=== PATIENT | male | born 1965 | race Hispanic/Latino ===

== ENCOUNTER 2017-07-15 08:40 | Emergency (ER) | payer MEDICARE ==
[2017-07-15 09:42] LABS: BASOPHILS % (AUTO) 0.9 % (0.0-5.0); EOSINOPHILS % (AUTO) 0.8 % (0.0-8.0); HEMATOCRIT 43.1 % (42-54); LYMPHOCYTES % (AUTO) 12.7 % (21.0-51.0); MEAN CORPUSCULAR HEMOGLOBIN 29.3 pg (27.0-33.0); MEAN CORPUSCULAR HGB CONC 35.5 g/dL (32.0-36.0); MEAN CORPUSCULAR VOLUME 82.7 fL (79-99); MONOCYTES % (AUTO) 7.2 % (3.0-13.0); NEUTROPHILS % (AUTO) 78.4 % (40.0-77.0); PLATELET COUNT (AUTO) 215 K/uL (130-400); RED BLOOD CELL COUNT(AUTO) 5.21 MIL/uL (4.50-6.20); RED CELL DISTRIBUTION WIDTH 13.2 % (11.0-15.5); WHITE BLOOD COUNT (AUTO) 10.7 K/uL (4.8-10.8)
[2017-07-15 09:59] LABS: CHLORIDE 100 mmol/L (101-111); POTASSIUM 4.2 mmol/L (3.5-5.1); SODIUM SERUM 136 mmol/L (136-145)
[2017-07-15] MEDS ORDERED: LIDOCAINE 1%-EPI 1:100,000 20 ML VIAL IJ ONE (10:05)
[2017-07-15] MEDS ORDERED: CLINDAMYCIN 600 MG/D5% WATER 50 ML IV ONE (10:05)
[2017-07-15 10:06] LABS: ALANINE AMINOTRANSFERASE 25 U/L (12-78); ALBUMIN 3.3 g/dL (3.5-5.0); ASPARTATE AMINOTRANSFERASE 54 U/L (10-37); BILIRUBIN,TOTAL 1.3 mg/dL (0.2-1.0); CARBON DIOXIDE 24 mmol/L (21-32); CREATINE KINASE MB < 0.5 ng/mL (0.5-3.6); CREATINE KINASE, TOTAL 142 U/L (21-232); CREATININE 0.7 mg/dL (0.5-1.5); GLOMERULAR FILTR. RATE CALC 127 mL/min (>60); GLUCOSE,RANDOM 344 mg/dL (70-105); MYOGLOBIN 17 ng/mL (10-92); TOTAL PROTEIN, SERUM 8.1 g/dL (6.0-8.3); TROPONIN I < 0.04 ng/mL (0.00-0.06); UREA NITROGEN, BLOOD 9 mg/dL (7-18)
[2017-07-15 10:27] LABS: INR 0.94 (0.85-1.15); PARTIAL THROMBOPLASTIN TIME 25.6 SEC (26.3-35.5); PROTHROMBIN TIME 9.9 SEC (9.6-11.6)
[2017-07-15 10:28] LABS: RAPID GROUP A STREP NEGATIVE (NEGATIVE)
[2017-07-15] MEDS ORDERED: KETOROLAC TROMETHAMINE 15MG/ML ONE (10:43)
== END 2017-07-15 12:05 | disposition home or self-care (01) ==
LOC: EDH 08:40
DX: L02.415 Cutaneous abscess of right lower limb (principal); L03.115 Cellulitis of right lower limb; J02.9 Acute pharyngitis, unspecified; R79.1 Abnormal coagulation profile; E11.9 Type 2 diabetes mellitus without complications; Z98.890 Other specified postprocedural states
CPT/HCPCS: 10060; 36415; 71045; 80053; 82550; 82553; 83605; 83874; 84484; 85025; 85610; 85730; 87040 ×2; 87804 ×2; 87880; 93005; 96365; 96375; 99285; J1885; J3490 ×2

== ENCOUNTER 2018-02-26 18:25 | Emergency (ER) | payer MEDICARE ==
[2018-02-26] MEDS ORDERED: LIDOCAINE HCL 2% VISCOUS 15 ML UDCUP ONE (19:09)
== END 2018-02-26 20:06 | disposition home or self-care (01) ==
LOC: EDH 18:25
DX: S02.5XXA Fracture of tooth (traumatic), initial encounter for closed fracture (principal); K02.9 Dental caries, unspecified; Z98.890 Other specified postprocedural states; X58.XXXA Exposure to other specified factors, initial encounter; Y93.89 Activity, other specified; Y92.89 Other specified places as the place of occurrence of the external cause; Y99.8 Other external cause status

== ENCOUNTER 2018-06-12 18:17 | Emergency (ER) | payer MEDICARE ==
[2018-06-12] MEDS ORDERED: IPRATROPIUM/ALBUTEROL SULFATE 3 ML SOLUTION IH ONE (19:23)
[2018-06-12 19:29] LABS: RAPID GROUP A STREP NEGATIVE (NEGATIVE)
== END 2018-06-12 20:51 | disposition home or self-care (01) ==
LOC: EDH 18:17
DX: J20.9 Acute bronchitis, unspecified (principal)
CPT/HCPCS: 71046; 87804; 87880; 94640

== ENCOUNTER 2024-10-20 16:09 | Emergency (ER) | payer MEDICARE ==
[~2024-10-20] VITALS: Ht 175.3 cm; Wt 90.7 kg
[~2024-10-20 16:09] MED LIST: GABA100C PO; GLIM2TAB30 PO; KETO10TA2 PO; LISI10TA24 PO; METF-445 PO
--- NOTE | 2024-10-20 16:33 | ERN ---
ED Note History of Present Illness Stated Complaint: SHAKING UNCONTROLLABLY Chief Complaint: Other Problems Time Seen by MD: 16:10 Dictation: Patient is a 59-year-old diabetic male coming in today with chills low-grade fever onset yesterday. He states he has been shaking uncontrollably. States he has a mild sore throat. Also states that he has to amputated toes to the right foot and she thinks there may be an early ulcer/wound there. Patient states he has had clear rhinitis and sneezing since yesterday. No nausea no vomiting no diarrhea no loss of taste or smell blood sugar this morning 106. Allergies: Coded Allergies: No Known Allergies (Unverified Allergy, Unknown, 06/14/22) Home Meds Active Scripts Ketorolac Tromethamine (Ketorolac Tromethamine) 10 Mg Tablet, 10 MG PO QIDP PRN for PAIN for 5 Days, #20 TAB 0 Refills Prov:ANGELINA BLAND Jr., MD 06/18/22 Lisinopril (Lisinopril) 10 Mg Tablet, 10 MG PO DAILY for HYPERTENSION for 30 Days, #30 TAB 3 Refills Prov:ANGELINA BLAND Jr., MD 06/18/22 Glimepiride (Glimepiride) 2 Mg Tablet, 2 MG PO DAILY for DIABETES MELLITUS for 30 Days, #60 TAB 3 Refills Prov:ANGELINA BLAND Jr., MD 06/18/22 Metformin HCl (Metformin HCl) 850 Mg Tablet, 850 MG PO BID for 30 Days, #60 TAB 3 Refills Prov:ANGELINA BLAND Jr., MD 06/18/22 Gabapentin (Neurontin) 100 Mg Capsule, 200 MG PO TID for 30 Days, #90 CAP 0 Refills Take 1 tablet orally 3 times a day Prov:ANGELINA BLAND Jr., MD 06/18/22 Past Medical History Past Medical History: Diabetes-Type II, Hypertension Surgical History: Other Surgical History Other: right foot 4th and 5th toe amputation RN Note Reviewed/Agreed w/PFSH: Yes Review of System Dictation CONSTITUTIONAL: Negative except for HPI chills HEAD/FACE: Negative except for HPI EENT: Negative except for HPI sneezing with clear rhinitis and sore throat RESPIRATORY: Negative except for HPI GASTROINTESTINAL/ABDOMINAL: Negative except for HPI GENITOURINARY: Negative except for HPI MUSCULOSKELETAL: Negative except for HPI INTEGUMENTARY: Negative except for HPI NEUROLOGICAL/PSYCH: Negative except for HPI HEMATOLOGIC/LYMPHATIC: Negative except for HPI All Systems Negative, Except as noted above. 13 point review of systems assessed and all negative except for above. Initial Vital Sign VS Vital Signs Date Time Temp Pulse Resp B/P (MAP) Pulse Ox O2 Delivery O2 Flow Rate FiO2 10/20/24 16:11 99.5 89 18 149/78 97 Room Air 0 10/20/24 16:15 21 Physical Exam Dictation Vital Signs reviewed General Appearance: Alert, oriented x 3, mild acute distress, well developed, nourished. Head and Face: non-traumatic. Eyes: PERRL, pink conjunctivas, eyelid no trauma, anterior chamber with arcus senilis. Ears: Pinnas intact and no signs of trauma or erythema ear canals clear and no discharge TM no erythema Nose: Clear discharge, no bleeding. Oropharynx: Mouth normal, tongue pink, pharynx clear,n mild pharyngeal erythema, tonsils no exudates, no abscesses noted, mucous membrane moist uvula midline, voice is clear Neck: Supple, non-tender, no thyromegaly, no masses, no JVD, no bruits Breast:Deferred Chest:No tenderness, no crepitus, no paradoxical movement, no retractions Lungs:Clear, well-ventilated, symmetric, no rales, no wheezing, no rhonchi, no stridor, good breath sounds bilaterally Heart: Regular rate, regular rhythm, no murmur, no gallops Vascular: no peripheral edema, Abdomen: Soft, positive bowel sounds, nondistended, no guarding, nontender, no rebound, no masses no hepatomegaly, no splenomegaly, no Simmons's sign, no hernias. Rectal: Deferred Genital: Deferred Neurological: Normal speech, motor function intact, sensory function intact Musculoskeletal: Neck nontender, full range of motion, back nontender, full range of motion, Extremities: nontender, full range of motion Skin: Color pink, dry, no turgor, no rash, no lacerations, no abrasions, no contusions. Lymphatic: Deferred Results (Laboratory/Radiology) Laboratory/Radiology Laboratory Tests Test 10/20/24 16:45 10/20/24 17:48 White Blood Count 7.2 K/uL (4.8-10.8) Red Blood Count 4.43 MIL/uL (4.50-6.20) L Hemoglobin 13.0 g/dL (14.0-18.0) L Hematocrit 38.2 % (42-54) L Mean Corpuscular Volume 86.2 fL (79-99) Mean Corpuscular Hemoglobin 29.3 pg (27.0-33.0) Mean Corpuscular Hemoglobin Concent 34.0 g/dL (32.0-36.0) Red Cell Distribution Width 13.3 % (11.0-15.5) Platelet Count 169 K/uL (130-400) Mean Platelet Volume 12.3 fL (7.5-10.5) H Immature Granulocyte % (Auto) 0.3 % (0-1) Neutrophils (%) (Auto) 93.6 % (40.0-77.0) H Lymphocytes (%) (Auto) 4.7 % (21.0-51.0) L Monocytes (%) (Auto) 0.7 % (3.0-13.0) L Eosinophils (%) (Auto) 0.4 % (0.0-8.0) Basophils (%) (Auto) 0.3 % (0.0-5.0) Neutrophils # (Auto) 6.7 K/uL (1.8-7.7) Lymphocytes # (Auto) 0.3 K/uL (1.0-4.8) L Monocytes # (Auto) 0.1 K/uL (0.1-1.0) Eosinophils # (Auto) 0.03 K/uL (0.00-0.70) Basophils # (Auto) 0.02 K/uL (0.00-0.20) Absolute Immature Granulocyte (auto 0.02 K/uL (0-1) Nucleated Red Blood Cells 0.0 % (0.0-0.19) White Cell Morphology Comment See comments Sodium Level 139 mmol/L (136-145) Potassium Level 4.4 mmol/L (3.5-5.1) Chloride Level 104 mmol/L (101-111) Carbon Dioxide Level 30 mmol/L (21-32) Blood Urea Nitrogen 16 mg/dL (7-18) Creatinine 0.9 mg/dL (0.5-1.3) Glomerular Filtration Rate Calc 100 mL/min (>90) Random Glucose 151 mg/dL (70-105) H Lactic Acid Level 1.5 mmol/L (0.8-2.5) Total Calcium 9.2 mg/dL (8.5-10.1) Influenza Type A Antigen Negative For Type A Influenza Type B Antigen Negative For Type B SARS-CoV-2 Antigen (Rapid) PRESUMPTIVE NEGATIVE Group A Streptococcus Rapid negative (NEGATIVE) Urine Color LIGHT-YELLOW (YELLOW) Urine Appearance CLEAR (CLEAR) Urine pH 7.0 (5.0-8.0) Urine Specific [place] 1.018 (1.001-1.031) Urine Protein 20 mg/dL (NEGATIVE) H Urine Glucose (UA) NEGATIVE mg/dL (NEGATIVE) Urine Ketones NEGATIVE mg/dL (NEGATIVE) Urine Occult Blood NEGATIVE (NEGATIVE) Urine Nitrate NEGATIVE (NEGATIVE) Urine Bilirubin NEGATIVE mg/dL (NEGATIVE) Urine Urobilinogen 0.2 mg/dL (0.2-1.0) Urine Leukocyte Esterase NEGATIVE [place]/uL Urine RBC 0-1 /HPF (0-1) Urine WBC 0-1 /HPF (0-1) Urine Squamous Epithelial Cells RARE /HPF (0-2) Urine Bacteria None /HPF (None Seen) EXAM: CR Chest, 1 View. CLINICAL HISTORY: SOB/cough COMPARISON: None provided. FINDINGS: LUNGS: There is no mass, infiltrate, or acute pulmonary abnormality. PLEURAL SPACES: No evidence of pleural effusion or pneumothorax. MEDIASTINUM: Cardiac size and mediastinal contours within normal limits. BONES: No aggressive appearing osseous lesion seen. IMPRESSION: No acute cardiopulmonary pathology is evident. /[facility] right foot, 3 View. CLINICAL HISTORY: Erythema tenderness swelling to lateral foot history of diabetes COMPARISON: None provided. FINDINGS: BONES: No acute fracture. No evidence of osteomyelitis. JOINTS: The joint spaces appear within normal limits. No dislocation. SOFT TISSUES: The soft tissues are unremarkable. MISCELLANEOUS: Prior amputations fourth, fifth digits Charcot appearance of the middle foot IMPRESSION: 1. Prior amputations fourth, fifth digits 2. Charcot appearance of the middle foot 3. No acute fracture. No evidence of osteomyelitis. Careful continued follow-up recommended. Labs Reviewed?: Yes ED Course ED Course Orders Procedure Category Date Status Time Blood Cult DARRYL 10/20/24 In Process 16:30 Lactic Acid LAB 10/20/24 Complete 16:30 Rapid (Group A Strep) LAB 10/20/24 Complete 16:30 Influenza Type A & B, LAB 10/20/24 Complete Rapid 16:30 Covid19 (Sars Antigen LAB 10/20/24 Complete Rapid) 16:30 Cbc With Differential LAB 10/20/24 Complete 16:30 Urinalysis Profile LAB 10/20/24 Complete 16:30 Chest 1vw RAD 10/20/24 Resulted 16:30 Basic Metabolic Panel LAB 10/20/24 Complete 16:30 Saline Lock Iv CPOE 10/20/24 Transmitted 16:30 Acetaminophen 500mg PHA 10/20/24 Complete Tab (Tylenol 500mg T 16:30 Foot Comp 3+Vws Rt RAD 10/20/24 Resulted 17:05 Clindamycin Ivpb PHA 10/20/24 Complete 600mg/50ml (Cleocin 18:16 Current Medications Medications (Trade) Dose Ordered Sig/Kalia Route PRN Reason Start Time Stop Time Status Last Admin Dose Admin Acetaminophen (TYLenol 500MG TAB) 1,000 mg ONCE ONCE PO 10/20/24 16:30 10/20/24 16:34 DC 10/20/24 16:47 Clindamycin HCl/ Dextrose 50 ml @ 100 mls/hr ONCE STAT IV 10/20/24 18:16 10/20/24 18:45 DC 10/20/24 18:44 Vital Signs Date Time Temp Pulse Resp B/P (MAP) Pulse Ox O2 Delivery O2 Flow Rate FiO2 10/20/24 16:50 102 20 151/91 97 Room Air* 0 21 10/20/24 16:15 99.5 89 18 149/78 97 Room Air* 0 10/20/24 16:11 99.5 89 18 149/78 97 Room Air 0 1850/SPOKE WITH PATIENT IN HIS AT LENGTH REGARDING FINDINGS. THEY ARE AWARE THAT THIS IS AN EARLY RIGHT FOOT CELLULITIS. PATIENT WILL BE LOADED WITH CLINDAMYCIN 600 MG IV THEN DISCHARGED HOME WITH 3 ML MG Q.I.D. AND SHE WILL FOLLOW UP WITH DR. BACA IN THE NEXT 1-2 DAYS. Medical Decision Making MDM MDM: DIFFERENTIAL DIAGNOSIS: COVID/FLU/STREP/SEPSIS/UNCONTROLLED DIABETES/OSTEOMYELITIS/DIABETIC RIGHT FOOT/ELECTROLYTE IMBALANCE/DEHYDRATION RATIONALE: TESTS CONSIDERED AND ORDERED SECONDARY TO SHARED DECISION MAKING INCLUDE: LABS/RADIOLOGY PREVIOUS OUTSIDE RECORDS REVIEWED: OLD ER VISITS. RISK OF COMPLICATION AND/OR MORBIDITY OR MORTALITY OF PATIENT MANAGEMENT: NONE MEDICATIONS-PER MEDICATION RECONCILIATION NEED FOR HOSPITALIZATION: PATIENT DOES NOT MEET CRITERIA FOR HOSPITALIZATION. REFUSED AT THIS TIME WANTS TO GO HOME HE WILL BE TREATED OUTPATIENT NEED FOR EMERGENCY MAJOR/MINOR SURGERY: NO THERE ARE NO SOCIAL CONCERNS WITH THIS PATIENT. PRESCRIPTION DRUG MANAGEMENT CLINDAMYCIN PRESCRIPTIONS WILL INCLUDE SYMPTOMATIC CARE PATIENT'S PRIOR EXTERNAL MEDICAL RECORDS FROM OTHER ER VISITS WERE REVIEWED BY ME INDICATED. PRIOR TESTING AND RESULTS FROM PREVIOUS VISITS WERE REVIEWED. PRIOR TESTS WERE TAKEN INTO ACCOUNT WITH MEDICAL DECISION MAKING AND RESOURCE UTILIZATION, INDEPENDENT HISTORIAN/HISTORIANS WERE USED TO OBTAIN COMPLETE MEDICAL HISTORY. I INDEPENDENTLY INTERPRETED THE TEST THAT WERE PERFORMED, RESULTS WERE REVIEWED BY ME AND CONSIDERED FINDINGS ON RADIOLOGY IF ORDERED. MEDICAL MANAGEMENT AND EXAMINATION INTERPRETATION DISCUSSIONS WERE HAD BY ME WITH OTHER QUALIFIED HEALTHCARE PROFESSIONALS INDICATED FOR THE PATIENT'S CARE. DX & DISP Disposition: Discharge Departure Impression: Primary Impression: Cellulitis of right foot Additional Impressions: Diabetes mellitus with hyperglycemia, Fever Condition: Stable Scripts Clindamycin HCl (Clindamycin HCl) 300 Mg Capsule 1 CAP PO QID for 10 Days, #40 CAP 0 Refills Prov: ANGELA ANGUIANO NP 10/20/24 Additional Instructions: FOLLOW-UP WITH PRIMARY CARE PROVIDER IN 1 TO 2 DAYS. TAKE MEDICATIONS DIRECTED HERE IN THE EMERGENCY ROOM. OKAY TO CONTINUE HOME MEDICATIONS UNLESS OTHERWISE DISCUSSED DURING YOUR VISIT IN THE EMERGENCY ROOM TODAY. RETURN TO YOUR NEAREST EMERGENCY ROOM IF SYMPTOMS WORSEN OR IF THERE IS NO IMPROVEMENT. CALL 911 IF YOU NEED IMMEDIATE ASSISTANCE. TAKE TYLENOL OR MOTRIN [id number] NEEDED AND IF NO CONTRAINDICATIONS ARE PRESENT. INCREASE ORAL HYDRATION. A WOUND CULTURE OR URINE CULTURE WAS ORDERED HERE IN THE EMERGENCY ROOM DEPARTMENT PLEASE FOLLOW-UP WITH PRIMARY CARE PROVIDER AND ADVISE THEM TO GET REPEAT PORTS FROM OUR FACILITY. IF YOU HAD ANY FAISAL WRAP/SPLINTS TH AT WERE APPLIED HERE, PLEASE DO NOT REMOVE THEM UNTIL YOU SEE YOUR PRIMARY CARE OR SPECIALTY. TAKE CLINDAMYCIN DIRECTED UNTIL GONE. KEEP RIGHT FOOT ELEVATED MUCH POSSIBLE. NO TIGHT-FITTING SHOES ON RIGHT FOOT UNTIL CLEARED BY YOUR TAWER AND CALL HIM FOR AN APPOINTMENT IN THE NEXT 1-2 DAYS. Referrals: CARLA DEAN MD (PCP) SELIN BACA DPM Time of Disposition: 18:54 I have reviewed the case, and I agree with, Diagnosis and Plan ANGELA ANGUIANO NP Oct 20, 2024 16:33
--- NOTE | 2024-10-20 16:49 | HMCIMG ---
EXAM: CR Chest, 1 View. CLINICAL HISTORY: SOB/cough COMPARISON: None provided. FINDINGS: LUNGS: There is no mass, infiltrate, or acute pulmonary abnormality. PLEURAL SPACES: No evidence of pleural effusion or pneumothorax. MEDIASTINUM: Cardiac size and mediastinal contours within normal limits. BONES: No aggressive appearing osseous lesion seen. IMPRESSION: No acute cardiopulmonary pathology is evident. /[place]
[2024-10-20 16:51] LABS: IMMATURE GRANULOCYTE ABSOLUTE 0.02 K/uL (0-1); NUCLEATED RED BLOOD CELLS 0.0 % (0.0-0.19); PLATELET COUNT (AUTO) 169 K/uL (130-400); RED BLOOD CELL COUNT(AUTO) 4.43 MIL/uL (4.50-6.20); RED CELL DISTRIBUTION WIDTH 13.3 % (11.0-15.5); WHITE BLOOD COUNT (AUTO) 7.2 K/uL (4.8-10.8)
[2024-10-20 17:00] LABS: CREATININE 0.9 mg/dL (0.5-1.3); GLOMERULAR FILTR. RATE CALC 100.0 mL/min (>90); GLUCOSE,RANDOM 151.0 mg/dL (70-105); SODIUM SERUM 139.0 mmol/L (136-145); UREA NITROGEN, BLOOD 16.0 mg/dL (7-18)
[2024-10-20 17:02] LABS: RAPID GROUP A STREP negative (NEGATIVE)
[2024-10-20 17:12] LABS: COVID19 (SARS ANTIGEN RAPID) PRESUMPTIVE NEGATIVE (NEGATIVE); INFLUENZA TYPE A Negative For Type A (NEGATIVE); INFLUENZA TYPE B Negative For Type B (NEGATIVE)
--- NOTE | 2024-10-20 18:06 | HMCIMG ---
EXAM: CR right foot, 3 View. CLINICAL HISTORY: Erythema tenderness swelling to lateral foot history of diabetes COMPARISON: None provided. FINDINGS: BONES: No acute fracture. No evidence of osteomyelitis. JOINTS: The joint spaces appear within normal limits. No dislocation. SOFT TISSUES: The soft tissues are unremarkable. MISCELLANEOUS: Prior amputations fourth, fifth digits Charcot appearance of the middle foot IMPRESSION: 1. Prior amputations fourth, fifth digits 2. Charcot appearance of the middle foot 3. No acute fracture. No evidence of osteomyelitis. Careful continued follow-up recommended. /[place]
[2024-10-20 18:10] LABS: ADD UA MICROSCOPIC YES; APPEARANCE,URINE CLEAR (CLEAR); GLUCOSE, URINE (UA) NEGATIVE (NEGATIVE); LEUKOCYTE ESTERASE ,URINE NEGATIVE Leu/uL (NEGATIVE); NITRATE,URINE NEGATIVE (NEGATIVE); OCCULT BLOOD,URINE NEGATIVE (NEGATIVE)
[2024-10-20 18:11] LABS: SQUAMOUS EPITHELIAL CELL,UR RARE /HPF (0-2)
[2024-10-20] MEDS: CLINDAMYCIN IVPB 600MG/50ML 50 ML IV STA (18:44)
[2024-10-20] MEDS ORDERED: CLIN-141 PO (18:56)
[2024-10-20 19:15] VITALS: BP 106/57; PULSE 87; RESP 20; TEMP 98.9; O2SAT 97
== END 2024-10-20 19:18 | disposition home or self-care (01) ==
LOC: EDH 16:09
DX: L03.115 Cellulitis of right lower limb (principal); E11.65 Type 2 diabetes mellitus with hyperglycemia; R50.9 Fever, unspecified; I10 Essential (primary) hypertension; Z20.822 Contact with and (suspected) exposure to COVID-19; Z79.84 Long term (current) use of oral hypoglycemic drugs; Z79.899 Other long term (current) drug therapy
CPT/HCPCS: 99284; 96365; 71045; 87426; 80048; 85025; 87040 ×2; 87880; 87804 ×2; 83605; 81001; 36415; 73630; J3490

== ENCOUNTER 2025-02-14 03:19 | Emergency (ER) | payer MEDICARE ==
[~2025-02-14] VITALS: Ht 175.3 cm; Wt 85.3 kg
[~2025-02-14 03:19] MED LIST changes: +CLIN-141 PO; +MAGN400C PO
[2025-02-14 03:22] VITALS: TEMP 97.6
--- NOTE | 2025-02-14 04:06 | ERN ---
ED Note History of Present Illness Stated Complaint: C/O PAIN TO LEFT EYE Chief Complaint: Eye Problems Time Seen by MD: 04:00 Dictation: This is a 60-year-old male who presented to the emergency room with complaints of pain in his left eye which started yesterday. He denied any injury to the left eye. He also reports redness tearing. He reports mild blurred vision when the pain is extremely severe. No nausea vomitings. No history of any headache. 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 Allergies: Coded Allergies: No Known Allergies (Unverified Allergy, Unknown, 06/14/22) Home Meds Active Scripts Magnesium Oxide (Magnesium) 400 Mg Magnesium Capsule, 1 CAP PO DAILY for 15 Days, #15 CAP 0 Refills Prov:ANGELA ANGUIANO ADDICTION TREATMENT COUNSELOR 02/11/25 Clindamycin HCl (Clindamycin HCl) 300 Mg Capsule, 1 CAP PO QID for 10 Days, #40 CAP 0 Refills Prov:ANGELA ANGUIANO ADDICTION TREATMENT COUNSELOR 10/20/24 Ketorolac Tromethamine (Ketorolac Tromethamine) 10 Mg Tablet, 10 MG PO QIDP PRN for PAIN for 5 Days, #20 TAB 0 Refills Prov:ANGELINA BLAND Jr., MD 06/18/22 Lisinopril (Lisinopril) 10 Mg Tablet, 10 MG PO DAILY for HYPERTENSION for 30 Days, #30 TAB 3 Refills Prov:ANGELINA BLAND Jr., MD 06/18/22 Glimepiride (Glimepiride) 2 Mg Tablet, 2 MG PO DAILY for DIABETES MELLITUS for 30 Days, #60 TAB 3 Refills Prov:ANGELINA BLAND Jr., MD 06/18/22 Metformin HCl (Metformin HCl) 850 Mg Tablet, 850 MG PO BID for 30 Days, #60 TAB 3 Refills Prov:ANGELINA BLAND Jr., MD 06/18/22 Gabapentin (Neurontin) 100 Mg Capsule, 200 MG PO TID for 30 Days, #90 CAP 0 Refills Take 1 tablet orally 3 times a day Prov:ANGELINA BLAND Jr., MD 06/18/22 Past Medical History Past Medical History: Diabetes-Type II, Hypertension Surgical History: Other Surgical History Other: AMPUTATION TO RT 4TH AND 5TH TOE Family History: Negative RN Note Reviewed/Agreed w/PFSH: Yes Review of System Dictation Constitutional: Negative for fever,chills, and weight loss Eyes: Positive for right eye pain,redness, and discharge ENT: Negative for injury,pain or swelling Cardiovascular: Negative for chest pain, palpitations, and edema Respiratory: Negative for shortness of breath, cough, and wheezing, Abdomen/GI: Negative for abdominal pain, nausea, vomiting, diarrhea, and constipation Back: Negative for injury and pain : Negative for injury, bleeding and discharge MS/Extremity: Negative for injury and deformity Skin: Negative for rash, and discoloration Neuro: Negative for headache, weakness, numbness, tingling, and seizure Psych: Negative for suicide ideation, homicidal ideation, and hallucinations Initial Vital Sign VS Vital Signs Date Time Temp Pulse Resp B/P (MAP) Pulse Ox O2 Delivery O2 Flow Rate FiO2 02/14/25 03:22 97.5 66 20 125/83 98 Room Air 02/14/25 03:50 0 21 Physical Exam Dictation General: awake, alert, NAD Head/Face: Normocephalic, atraumatic Eyes: PERRL, EOMI, vision at baseline ENT: oral cavity clear, TMs clear, no signs of infection Neck: Trachea midline, supple, no nuchal rigidity Cardiovascular: RRR, normal S1/S2, No MRGs, no JVD Respiratory: CTAB, no respiratory distress, No rales or wheezes Abdomen: Soft, non-tender, non-distended, normal bowel sounds, no guarding or rebound. Skin: Warm, dry, normal turgor, no rash MS/Extremity: Pulses equal, no cyanosis, neurovascular intact, FROM Neuro: COAx4, GCS 15, strength 5/5, CN 2-12 intact, normal cerebellar exam, normal gait, Psych: Normal behavior, mood, and affect normal Extremities-trace edema without any palpable cords, Homans sign is negative ED Course ED Course Orders Procedure Category Date Status Time Morphine 4mg Syg PHA 02/14/25 Complete (Morphine 4mg Syg) 04:30 Tetracaine Hcl PHA 02/14/25 In Process (Pontocaine 0.5% 04:30 Prednisolone 1% Drops PHA 02/14/25 Complete (Predforte 1% Drop 05:00 Timolol Maleate 0.25% PHA 02/14/25 In Process (Timoptic) 05:00 Current Medications Medications (Trade) Dose Ordered Sig/Kalia Route PRN Reason Start Time Stop Time Status Last Admin Dose Admin Morphine Sulfate (morPHINE 4MG SYG) 4 mg ONCE ONCE IM 02/14/25 04:30 02/14/25 04:31 DC 02/14/25 04:22 Prednisolone Acetate (PREDforte 1% DROPS) 1 drop ONCE ONCE OD 02/14/25 05:00 02/14/25 05:01 DC 02/14/25 05:04 Tetracaine HCl (Pontocaine 0.5% Ophth Soln) 1 OR 2 DROPS ONCE OP 02/14/25 04:30 03/16/25 04:29 Timolol Maleate (Timoptic) 1 DROP ONCE OD 02/14/25 05:00 03/16/25 04:59 02/14/25 05:18 Vital Signs Date Time Temp Pulse Resp B/P (MAP) Pulse Ox O2 Delivery O2 Flow Rate FiO2 02/14/25 05:15 55 18 109/65 98 Room Air* 0 21 02/14/25 03:50 60 18 136/72 98 Room Air* 0 21 02/14/25 03:22 97.5 66 20 125/83 98 Room Air Medical Decision Making MDM Differential diagnosis: Scleritis, episcleritis, acute glaucoma, corneal abrasion, conjunctivitis This is a 60-year-old male who presented to the emergency room with complaints of pain in his left eye which started yesterday. He denied any injury to the left eye. He also reports redness tearing. He reports mild blurred vision when the pain is extremely severe. No nausea vomitings. No history of any headache. 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 Tonometry left eye pressure of 56 mmHg. A drop of prednisolone and timolol were added. Empiric pain medication was also given. Patient felt significantly imp roved and his vision was also better. The rest of the drops were given to patient to continue using at home and he will be seeing his tack picker on Tuesday. Rationale: Tests considered and ordered secondary to shared decision making include: Previous outside records reviewed: Old ER visits. Risk of complication and/or morbidity or mortality of patient management: None Medications-Per medication reconciliation Need for hospitalization: Patient does not meet criteria for hospitalization. Need for emergency major/minor surgery: No There are no social concerns with this patient. Prescription drug management Prescriptions will include symptomatic care Patient's prior external medical records from other ER visits were reviewed by me as indicated. Prior testing and results from previous visits were reviewed. Prior tests were taken into account with medical decision making and resource utilization, independent historian/historians were used to obtain complete medical history. I independently interpreted the test that were performed, results were reviewed by me and considered findings on radiology if ordered. Medical management and examination interpretation discussions were had by me with other qualified healthcare professionals as indicated for the patient's care. Problem List Problem List: (1) Acute angle-closure glaucoma of left eye (2) Diabetic retinopathy DX & DISP Disposition: Discharge Departure Impression: Primary Impression: Acute angle-closure glaucoma of left eye Additional Impression: Diabetic retinopathy Condition: Stable Additional Instructions: Patient and the caregiver have been informed of all the diagnostic tests and the imaging conducted during the today's visit to the emergency room and has verbalized understanding of the results I have personally reviewed and interpreted all diagnostic exams performed here in the ER today as well as the vital signs documented by the nursing staff. The patient is now being disc harged to home and should follow up with the primary care physician or the specialist as directed by the ER staff. Your left eye pressure was 56 mmHg. Patient was given timolol drops and instructions to use 1-2 drops twice a day until his tack picker appointment on Tuesday Pred 1% eye drops 1 drop twice a day for 3 days only Referrals: CARLA DEAN MD (PCP) TAE SANDOVAL MD Feb 14, 2025 04:06
[2025-02-14] MEDS: TETRACAINE HCL 0.5% 4 ML OPHTH SOLN OP SCH (04:27)
[2025-02-14 05:15] VITALS: BP 109/65; PULSE 55; RESP 18; O2SAT 98
[2025-02-14] MEDS: TIMOLOL MALEATE 0.25% 5 ML BOTTLE OD SCH (05:18)
== END 2025-02-14 06:08 | disposition home or self-care (01) ==
LOC: EDH 03:19
DX: E11.319 Type 2 diabetes mellitus with unspecified diabetic retinopathy without macular edema (principal); H40.212 Acute angle-closure glaucoma, left eye; I10 Essential (primary) hypertension; Z79.84 Long term (current) use of oral hypoglycemic drugs; Z79.899 Other long term (current) drug therapy; Z89.421 Acquired absence of other right toe(s)
CPT/HCPCS: 99283; 96372; J7510; J2270